=== PATIENT | male | born 1955 | race Caucasian/White ===

== ENCOUNTER 2025-10-03 16:47 | Emergency (ER) | payer MEDICARE, BC ==
[~2025-10-03] VITALS: Ht 185.4 cm; Wt 94.3 kg
[2025-10-03] MEDS ORDERED: AMOCLA875 PO (21:33)
[2025-10-03] MEDS ORDERED: RX Prepack 6 Tabs Oxycodone 5mg UD ONE (21:35)
== END 2025-10-03 21:44 | disposition home or self-care (01) ==
LOC: ER 16:47
DX: S62.522B Displaced fracture of distal phalanx of left thumb, initial encounter for open fracture (principal); W27.8XXA Contact with other nonpowered hand tool, initial encounter; I10 Essential (primary) hypertension; S61.112A Laceration without foreign body of left thumb with damage to nail, initial encounter
CPT/HCPCS: 12002; 73140; 90471; 90715; 99283-25; A9270